=== PATIENT | female | born 1970 | race American Indian/Alaskan Native ===

== ENCOUNTER 2020-06-30 10:45 | Outpatient (CLI) | payer MEDICARE ==
--- NOTE | 2020-06-30 12:16 | Mammography Report ---
DIGITAL SCREENING MAMMOGRAM WITH CAD, 06/30/2020 CLINICAL INFORMATION / INDICATION: Routine screening mammography. TECHNIQUE: Digital bilateral 2D mammography was obtained in the craniocaudal and mediolateral obliqu e projections. This examination was interpreted with the benefit of Computer-Aided Detection analysis . COMPARISON: This is the patient's first mammogram. FINDINGS: Breast Density: There are scattered areas of fibroglandular density. No dominant mass, suspicious calcifications, or architectural distortion in either breast. There are vascular arterial calcifications bilaterally. IMPRESSION: No mammographic evidence of malignancy. Follow up recommendation: Routine yearly BI-RADS Category 2: Benign. A "normal" or negative report should not discourage follow up or biopsy of a clinically significant f inding. A written summary of these findings will be mailed to the patient. The patient will be entered into a mammography reporting system which will generate a reminder letter for the patient's next appointmen t at the appropriate interval. [employer] recommends yearly mammograms starting at age 40 and continuing as l hawa as a woman is in good health. Breast MRI is recommended for women with an approximate 20-25% or greater lifetime risk of breast cancer, including women with a strong family history of breast or ova hunter cancer or who have been treated for Hodgkin's disease. Signer Name: Ani Conteh MD Signed: 06/30/2020 12:12 PM Workstation Name: [id number]
== END 2020-06-30 10:46 | disposition home or self-care (01) ==
LOC: SPVWC 10:45
PROVIDERS: ATTEND Internal Medicine Hematology & Oncology
DX: Z12.31 Encounter for screening mammogram for malignant neoplasm of breast (principal)
CPT/HCPCS: 77067

== ENCOUNTER 2020-11-07 09:49 | Day surgery (SDC) | payer MEDICARE ==
[~2020-11-07 09:49] MED LIST: SODIUM CHLORIDE 0.9% 1000 ML 1,000 ML IV SCH; fentaNYL 100 MCG/2 ML INJ IV PRN
[2020-11-07] MEDS: MIDAZOLAM 2 MG/2 ML INJ IV NR ×2 (11:10→11:40)
[2020-11-07] MEDS ORDERED: ONDANSETRON 4 MG/2 ML INJ IV PRN (11:23)
--- NOTE | 2020-11-07 11:23 | Anesthesia Consultation ---
Anesthesia Consult and Med Hx Date of service: 11/07/20 - Airway Anesthetic Teeth Evaluation: Poor ROM Head & Neck: Adequate Mental/Hyoid Distance: Adequate Mallampati Class: Class III Intubation Access Assessment: Possibly Difficult - Pre-Operative Health Status ASA Pre-Surgery Classification: ASA3 Proposed Anesthetic Plan: General (discussed regional vs GA; patient requests GA) - Pulmonary Hx Smoking: No Hx Respiratory Symptoms: No - Cardiovascular System Hx Hypertension: Yes (took antihypertensives this morning) Hx Heart Attack/AMI: No (normal EF on TTE 2019) Hx Percutaneous Transluminal Coronary Angioplasty (PTCA): No Hx Cardia Arrhythmia: No Hx Peripheral Vascular Disease: No (hx DVT/PE 2006; 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
--- NOTE | 2020-11-07 11:23 | Anesthesia Day of Surgery ---
Anesthesia Day of Surgery - Day of Surgery Patient Examined: Yes Patient H&P Reviewed: Yes Patient is NPO: Yes Beta Blockers: Yes
[2020-11-07 11:37] LABS: Hematocrit 25.8 % (30.3-42.9); Hemoglobin 8.4 gm/dl (10.1-14.3); Mean Corpuscular HGB Conc 32 % (30-34); Mean Corpuscular Volume 83 fl (79-97); Platelet Count 508 K/mm3 (140-440); Red Blood Count 3.12 M/mm3 (3.65-5.03); Red Cell Distribution Width 14.6 % (13.2-15.2)
[2020-11-07] MEDS ORDERED: HYDROmorphone 1 MG/1 ML INJ ONE (11:53)
[2020-11-07] MEDS ORDERED: LIDOCAINE MPF (2%) 20 MG/1 ML VIAL 5 ML ONE (11:54)
[2020-11-07] MEDS ORDERED: propofoL 200 MG/20 ML VIAL IV ONE (11:54)
[2020-11-07 11:55] LABS: Calcium 8.8 mg/dL (8.4-10.2)
[2020-11-07] MEDS ORDERED: LIDOCAINE (1%) 10 MG/1 ML VIAL 20 ML MDV ONE (11:56)
[2020-11-07] MEDS ORDERED: PROTAMINE SULFATE 50 MG/5 ML INJ ONE (11:56)
[2020-11-07] MEDS ORDERED: BUPIVACAINE/PF (0.5%) 5 MG/1 ML 30 ML VIAL INFILTRATI ONE ×2 (11:56→13:05)
[2020-11-07] MEDS ORDERED: THROMBIN (RECOMBINANT) 5,000 UNIT VIAL TP ONE (11:56)
[2020-11-07] MEDS ORDERED: HEPARIN IR ONE (12:41)
[2020-11-07] MEDS ORDERED: SODIUM CHLORIDE 0.9% IR ONE (12:41)
[2020-11-07] MEDS ORDERED: GELATIN SPONGE SIZE 100 TP ONE (12:46)
[2020-11-07] MEDS ORDERED: LIDOCAINE (1%) 10 MG/1 ML VIAL 20 ML MDV INFILTRATI ONE (13:06)
[2020-11-07] MEDS ORDERED: HEPARIN 10,000 UNITS/10 ML VIAL ONE (13:09)
[2020-11-07] MEDS ORDERED: SODIUM CHLORIDE 0.9% 250ML 250 ML ONE (13:09)
[2020-11-07] MEDS ORDERED: PROTAMINE SULFATE 50 MG/5 ML INJ IV ONE (13:45)
[2020-11-07] MEDS ORDERED: GLYCOPYRROLATE 0.4 MG/2 ML INJ ONE (13:48)
[2020-11-07] MEDS ORDERED: ONDANSETRON 4 MG/2 ML INJ ONE (13:59)
[2020-11-07] MEDS ORDERED: HYDROcodone/ACETAMINOPHEN 5-325 MG TAB PO PRN (14:11)
--- NOTE | 2020-11-07 14:11 | Post Operative Note ---
Date of procedure: 11/07/20 Pre-op diagnosis: Stage IV Chronic Kidney Disease Post-op diagnosis: same Procedure: Left Arm Brachiocephalic AV Fistula Creation Anesthesia: GETA Surgeon: NOREEN SOLIS Estimated blood loss: other (25ml) Pathology: none Condition: stable Disposition: PACU
--- NOTE | 2020-11-07 14:13 | Short Stay Summary ---
Short Stay Documentation Date of service: 11/07/20 - History H&P: obtained from office Past Medical History: diabetes, ESRD - Allergies and Medications Current Medications: Allergies lisinopril Allergy (Verified 10/28/20 15:19) Angioedema vancomycin Allergy (Verified 10/28/20 15:19) Itching Home Medications Medication Instructions Recorded Confirmed Last Taken Type Gabapentin 300 mg PO BID 12/13/15 10/28/20 11/06/20 History Lasix TAB 40 mg PO DAILY 12/13/15 10/28/20 11/06/20 History Losartan 100 mg PO DAILY 12/13/15 10/28/20 11/07/20 08:00 History Metoprolol Tartrate 50 mg PO DAILY 12/13/15 10/28/20 11/07/20 08:00 History amLODIPine 10 mg PO DAILY 12/13/15 10/28/20 11/07/20 08:00 History cloNIDine 0.2 mg PO BID 12/13/15 10/28/20 11/07/20 08:00 History Ergocalciferol [Vitamin D2] 1 cap PO 1XW 06/18/20 10/28/20 11/06/20 History Insulin Aspart Prot/Insuln Asp 55 unit SQ QPM 06/18/20 10/28/20 11/06/20 History [Novolog Mix 70-30 Flexpen] Insulin Aspart Prot/Insuln Asp 65 unit SQ QAM 06/18/20 10/28/20 11/06/20 History [Novolog Mix 70-30 Flexpen] Rosuvastatin Calcium [Crestor] 10 mg PO HS 06/18/20 10/28/20 11/06/20 History glipiZIDE [Glucotrol] 10 mg PO QDAY 06/18/20 10/28/20 11/06/20 History Active Medications Fentanyl (Fentanyl 100 Mcg/2 Ml Inj) 100 mcg IV ONCE PRN PRN Reason: sedation for nerve block Fentanyl (Fentanyl 100 Mcg/2 Ml Inj) 50 mcg IV Q5MIN PRN PRN Reason: Pain , Severe (7-10) Stop: 11/07/20 23:59 Sodium Chloride (Nacl 0.9% 1000 Ml) 1,000 mls @ 42 mls/hr IV DIRECT BOYD Stop: 11/07/20 23:59 Last Admin: 11/07/20 11:10 Dose: 42 mls/hr Documented by: Cefazolin Sodium 3 gm/ Sodium (Chloride) 100 mls @ 100 mls/30 min IV PREOP NR; Protocol Stop: 11/07/20 23:59 Midazolam HCl (Midazolam 2 Mg/2 Ml Inj) 2 mg IV PREOP NR Stop: 11/07/20 23:01 Last Admin: 11/07/20 11:40 Dose: 2 mg Documented by: Ondansetron HCl (Ondansetron 4 Mg/2 Ml Inj) 4 mg IV ONCE PRN PRN Reason: Nausea And Vomiting - Physical exam General appearance: no acute distress HEENT: Atraumatic Lungs: Normal air movement Heart: Regular rate Extremities: no ischemia - Hospital course Hospital course: the patient was taken to the operating room and had a left arm av fistula creation performed. please refer to the operative note concerning details of the procedure. the patient tolerated the procedure well and was discharged home in stable condition. - Disposition Condition at discharge: Stable Disposition: DC-01 TO HOME OR SELFCARE Short Stay Discharge Plan Follow up with: PRIMARY CAREMD [Primary Care Provider] - 7 Days
[2020-11-07] MEDS: fentaNYL 100 MCG/2 ML INJ IV PRN ×3 (14:35→15:16)
[2020-11-07] MEDS ORDERED: diphenhydrAMINE 50 MG CAP PO ONE (15:25)
[2020-11-07] MEDS ORDERED: diphenhydrAMINE 50 MG CAP PO NR (16:00)
--- NOTE | 2020-11-07 16:06 | Post Anesthesia Evaluation ---
- Post Anesthesia Evaluation Patient Participated: Yes Airway Patent: Yes Stable Respiratory Function: Yes Nausea/Vomiting: No Temp > 96.8F: Yes Pain Manageable: Yes Adequeate Hydration: Yes Anesthesia Complications: No
[2020-11-07 16:38] VITALS: BP 155/57
--- NOTE | 2020-11-07 17:00 | Operative Report ---
DATE OF SURGERY: 11/07/2020 STAFF SURGEON: Dr. Mainor Webster. PREOPERATIVE DIAGNOSIS: Stage IV chronic kidney disease. POSTOPERATIVE DIAGNOSIS: Stage IV chronic kidney disease. PROCEDURE PERFORMED: Left arm brachiocephalic AV fistula creation. COMPLICATIONS: None. ESTIMATED BLOOD LOSS: 25 mL ANESTHESIA: General. INDICATIONS FOR PROCEDURE: This is a 49-year-old female with stage IV chronic kidney disease, in need of upper extremity access. The patient had a preoperative vein mapping, which demonstrated adequate cephalic vein in the left upper arm. Therefore, the patient was scheduled to undergo fistula creation. The patient was explained the risks, benefits and alternative of procedure, expressed understanding and wished to proceed. DESCRIPTION OF PROCEDURE: After appropriate consent was obtained, the patient was brought back to the operating room and placed on the operating table in supine position with left arm extended. The patient was given appropriate medication for general anesthesia, had LMA placed without difficulty. The left arm was prepped and draped in sterile fashion with ChloraPrep. Appropriate preoperative antibiotics were administered. Appropriate timeout was performed indicating the correct patient, procedure, and site of the procedure. We then began the operation by making a transverse incision just below the antecubital fossa. This was carried through the subcutaneous tissue with combination of blunt dissection and electrocautery. The cephalic vein was identified and found to be suitable for venous outflow. This was mobilized for appropriate distance both proximally and distally. The branches of the vein were taken down with a silk suture and transected. We then continued our dissection medially through the bicep aponeurosis, which allowed us to expose the brachial artery, which was found to be suitable for arterial inflow and was mobilized for appropriate distance both proximally and distally. The patient was given 5000 units of unfractionated heparin. After appropriate timeout elapsed, a bulldog clamp was placed on the vein proximally, anterior surface was marked and the distal stump was transected and ligated with silk suture. The vein was flushed with heparinized saline easily. We then proceeded to place vascular clamps on the brachial artery, both proximally and distally. A longitudinal arteriotomy was made with 11 blade, extended with Mai scissors. Then, an end-to-side anastomosis was performed with a running 6-0 Prolene suture. Once complete, flow was established through the fistula, which had a nice palpable thrill. After several beats, the distal clamp was removed. We looked to obtain hemostasis along our suture line, was obtained with hemostatic agents. Once we were satisfied with hemostasis, then proceeded to close the wound with a deep subcutaneous layer with interrupted 3-0 PDS and the skin was approximated with 4-0 Monocryl in a running fashion with a Dermabond dressing. The patient tolerated the procedure well. The patient emerged from general anesthesia and had LMA removed without difficulty. All the needles, laps and sponges were correct; however, there was a hypo-needle that was missing and so an x-ray was performed, which did not demonstrate any evidence of foreign body in the incision site. The patient was then sent to recovery in stable condition. TID: [id number] RECEIPT: [id number] LINDA/FARHANA
--- NOTE | 2020-11-07 17:15 | XRay Report ---
LEFT FOREARM 2 VIEWS INDICATION / CLINICAL INFORMATION: Status post left forearm surgery. Evaluate for foreign body. COMPARISON: None available. FINDINGS: BONES and JOINT(S): No acute fracture or subluxation. No significant arthritis. SOFT TISSUES: Soft tissue gas noted along the antecubital fossa is likely related to recent surgery. No radiopaque foreign body is identified. ADDITIONAL FINDINGS: None. IMPRESSION: No radiopaque foreign body or other acute abnormality. Signer Name: Masood Girard MD Signed: 11/07/2020 5:10 PM Workstation Name: [id number]
== END 2020-11-07 16:15 | disposition home or self-care (01) ==
LOC: OR 09:49
PROVIDERS: ATTEND Surgery Vascular Surgery
DX: I13.2 Hypertensive heart and chronic kidney disease with heart failure and with stage 5 chronic kidney disease, or end stage renal disease (principal); N18.6 End stage renal disease; E11.22 Type 2 diabetes mellitus with diabetic chronic kidney disease; I50.9 Heart failure, unspecified; E66.9 Obesity, unspecified; M19.90 Unspecified osteoarthritis, unspecified site; Z88.8 Allergy status to other drugs, medicaments and biological substances; Z79.899 Other long term (current) drug therapy; Z79.4 Long term (current) use of insulin; Z86.718 Personal history of other venous thrombosis and embolism; Z68.41 Body mass index [BMI] 40.0-44.9, adult; Z98.890 Other specified postprocedural states; Z86.2 Personal history of diseases of the blood and blood-forming organs and certain disorders involving the immune mechanism
CPT/HCPCS: 36415; 36821; 73090; 80048; 81025; 82962; 85027; A4649; J0690; J1170; J1644; J2250; J2405; J2704; J2720; J3010; J7030; J7050